=== PATIENT | male | born 1965 | race African-American/Black ===

== ENCOUNTER 2016-12-01 16:47 | Inpatient (IN) | payer OTHER ==
--- NOTE | ~2016-12-01 | CO ---
Unit #: [id number] #: [id number] Patient: SP BEVERLY [id number] [address] [place], [place] [address] [id number] I MR#: [id number] NAME: SP BEVERLY. ROOM: 237 Age: 51 Sex: M Admission Date: 12/01/2016 : 1965 Attending Physician: Francis Rdz M.D. Consultation Date: 12/02/2016 CONSULTATION REPORT Thanks for the consult. HISTORY OF PRESENT ILLNESS This is a 51-year-old black male, who has a history of type 2 diabetes mellitus, hypertension, hyperlipidemia, who presented to the emergency room for elevated blood sugars, increased polyuria, and polydipsia. On his arrival, his blood sugars were over 600 with pseudohyponatremia and creatinine of 1.5. He was started on insulin drip and admitted to the unit bed. Further evaluation showed A1c of 11.6. The patient reports he was taking 2 different insulins at home, probably Lantus and NovoLog, but it was switched to only different insulin recently to 10 units daily and also been taking metformin. PAST MEDICAL HISTORY Type 2 diabetes mellitus, hypertension, hyperlipidemia, morbid obesity. PAST SURGICAL HISTORY None. HOME MEDICATIONS Levemir, Lantus 10 units daily, metformin 1000 b.i.d., lisinopril 20 mg daily, hydrochlorothiazide 25 mg daily, aspirin daily, Lipitor 20 mg daily. ALLERGIES None. SOCIAL HISTORY Lives at home. Smokes 1 pack per day. Continues to use alcohol. No recreational or IV drug abuse. REVIEW OF SYSTEMS A 12-point review of system was completed. Please see HPI. Rest of the review of systems unremarkable. PHYSICAL EXAMINATION GENERAL: He is awake, alert, oriented to time, place, and person. VITAL SIGNS: He is afebrile. Temperature 98.1, blood pressure 99/69. HEENT: EOMI. Pupils equally reactive to light. NECK: Supple. No thyromegaly noted. CHEST: Good air entry. CVS: Regular rhythm. ABDOMEN: Obese. Bowel sounds positive. EXTREMITIES: No edema. Ulcers are noted. Unit #: [id number] #: [id number] Patient: SP BEVERLY ASSESSMENT 1. Type 2 diabetes mellitus, poorly controlled with an A1c of 11.6. 2. Morbid obesity. Weight is 146 kg. BMI of 48. 3. Hypertension. 4. Hyperlipidemia. PLAN We will discontinue insulin drip. The patient has started on Levemir 30 units subcu daily and NovoLog 10 units each meal with supplemental insulin as needed. Restart metformin 1000 mg b.i.d. Get nutrition consult. Continue to follow the patient for further management. Dictated by... Sheila Chauhan/julio TD: 12/03/2016 02:50 JOB #: [id number] CONSULTATION REPORT X Dimitrios Wei MD X CONSULTATION REPORT
--- NOTE | ~2016-12-01 | HP ---
Unit #: [id number] #: [id number] Patient: SP BEVERLY [id number] [address] [address] [id number] E MR#: [id number] NAME: SP BEVERLY. ROOM: Age: 51 Sex: M Admission Date: 12/01/2016 : 1965 Attending Physician: Moshe Quick M.D. Primary Care Physician: No Primary Care Physician HISTORY AND PHYSICAL CHIEF COMPLAINT Elevated blood sugar. HISTORY OF PRESENT ILLNESS The patient is a 51-year-old male with history of diabetes mellitus, noncompliant with his medication, brought to the emergency room complaining of elevated blood sugar. The patient stated that the patient was started recently on insulin by the PCP with 10 units of the basal insulin. The patient check the sugar and the sugar was running in 300s and thought that the patient might be in DKA. The patient was seen here in the hospital two years ago and was put on the Levemir. At that time, however, the patient stated that the patient is not taking Levemir and was on metformin for unknown reason. The patient also complains of increased urination for one week. The patient denies any fever, chills, nausea, vomiting, short of breath or chest pain. PAST MEDICAL HISTORY History of hypertension and diabetes. PAST SURGICAL HISTORY No surgical history. SOCIAL HISTORY The patient smokes one pack daily. Consumes alcohol on a rare occasion. FAMILY HISTORY Positive for diabetes. DRUG ALLERGIES No known drug allergies. HOME MEDICATIONS 1. He was started on Lantus 10 units recently. 2. Metformin 1,000 mg b.i.d. 3. Lisinopril. 4. Hydrochlorothiazide. 5. Aspirin. REVIEW OF SYMPTOMS A 14-point review of symptoms performed and only pertinent positive findings are described above, remaining are negative. PHYSICAL EXAMINATION GENERAL APPEARANCE: The patient is lying on a bed not in acute distress. Unit #: [id number] #: [id number] Patient: SP BEVERLY VITAL SIGNS: Temperature 98.4. Pulse 120. Respiratory rate 16. Blood pressure 145/74. Sating 99% at room air. HEENT: Head: Atraumatic, normocephalic. Pupils are equal, round and reactive to light and accommodation. Extraocular movements are intact. NECK: Supple. No JVD. LUNGS: Clear to auscultation bilaterally. No rhonchi. No wheezing. HEART: Regular rate and rhythm. ABDOMEN: Soft. Positive bowel sounds. EXTREMITIES: No cyanosis. No clubbing. NEUROLOGIC: Alert, awake, oriented. No gross focal motor deficit. DIAGNOSTIC STUDIES LABORATORY: Glucose 604, BUN 41, creatinine 1.5, sodium 126, potassium 4.6, chloride 92, bicarb 22, calcium 9.7, total protein 8, albumin 4.1, AST 17, ALT 58, alkaline phosphatase 77. Beta hydroxybutyrate 2.13. Anion gap 24. WBC 13.3, hemoglobin 14.8, hematocrit 45.3, platelets 290. UA shows more than 1,000 glucose. ASSESSMENT 1. DKA. 2. Acute kidney injury. 3. Hypertension. PLAN To admit the patient to the inpatient ICU. Continue with DKA protocol. The patient will have Endocrine consultation and taper the insulin drip. Repeat the labs again in the morning and further recommendations will follow as more lab results are available. Continue with IV fluids, normal saline, at 150 mL/hour. Dictated by Sheila Horan TD: 12/01/2016 19:02 JOB #: [id number] HISTORY AND PHYSICAL X X HISTORY AND PHYSICAL
--- NOTE | ~2016-12-01 | CR72 ---
[facility] A Service of [facility] RADIOLOGY TEXT RESULTS PATIENT: SP BEVERLY LOCATION: [place] [address] : [birth year] UNIT #: [id number] AGE: [address]: FARSHAD LUNSFORD MD SEX: M ORDER DR: [id number] [facility] [address] [facility]. [place], [place] [address] [id number] I MR#: [id number] Acc #: [id number] NAME: SP BEVERLY. : 1965 SEX: M STUDY DATE/TIME: 12/01/2016 20:33 UNIT: [facility] ROOM: [facility] STUDY DESCRIPTION: CR Chest Single View Portable Attending Physician: Farshad Lunsford M.D. Ordering Physician: Ed Doctor [id number] [facility] Primary Care Physician: No Primary Care Physician MEDICAL IMAGING REPORT This report is preliminary unless electronic signature is present EXAM Portable chest INDICATIONS Shortness of air with activity for the past week. PROCEDURE Frontal view chest COMPARISON 10/31/2016 FINDINGS Stable cardiomegaly. No dense consolidation, effusion or pneumothorax. IMPRESSION No active process Dictated by... Evan Wayne M.D. THIS IS AN ELECTRONICALLY VERIFIED REPORT Evan Wayne M.D. at 12/03/2016 7:00 AM MARLO/jennifer TD: 12/01/2016 23:21 JOB #: [id number] MEDICAL IMAGING REPORT COPY
--- NOTE | ~2016-12-01 | DS ---
Unit #: [id number] #: [id number] Patient: SP BEVERLY [id number] [address] [address] [id number] I MR#: [id number] NAME: SP BEVERLY. ROOM: 237 Age: 51 Sex: M Admission Date: 12/01/2016 : 1965 Discharge Date: 12/03/2016 Attending Physician: Marly Llamas M.D. Primary Care Physician: Sarai Primary Care Physician DISCHARGE SUMMARY ADDENDUM I discussed with Dr. Wei, who recommended that the patient's insulin dose should be increased to 30 units b.i.d. As the patient was taking Lantus at home, we should continue Lantus. He also advised to increase the patient's NovoLog to 15 units t.i.d. with each meal. Advised the patient to follow up as outpatient. The plan was discussed in detail with the patient, who showed complete understanding. Dictated by... Sheila Hernandez/miguel TD: 12/03/2016 16:14 JOB #: [id number] DISCHARGE SUMMARY X Marly Llamas MD X DISCHARGE SUMMARY
--- NOTE | ~2016-12-01 | A ---
[facility] Nutrition Therapy DATE: 12/03/16 Patient: SP BEVERLY Physician: BUBBA Address: [address] [place] [address] Room/Bed: [address] [place] [address], Zip: [place] [address] Admit Date: 12/01/16 Date of : [birth year] Height: 5 8 Weight: 321 146 NUTRITIONAL ASSESSMENT: REASON: PT SEEN FOR DX, ALSO CONSULT RECEIVED, ALSO HIGH BMI DOCUMENTATION PT IS 51 Y.O. MALE ADMITTED FOR DKA PMH: T2DM (DIAGNOSED 2 YEARS AGO), HTN, HLD Anthropometrics: 5'8", WT: 321# (146 KG), BMI: 48.8 Labs: GLU: 335, NA+:134, ALB: 3.4, A1c: 11.6 (REFLECTS POOR GLUCOSE MANAGEMENT) Meds: LEVEMIR, LIPITOR, GLUCOPHAGE, NOVOLOG, NACL I/O & Bowel function: 2568/4100 Skin Integrity: NO KNOWN SKIN ISSUES Estimated Nutrition Needs: N/A Assessment: CHART REVIEWED AND EVENTS NOTED. PT SEEN FOR DX, ALSO CONSULT RECEIVED. PT SITTING IN CHAIR AT TIME OF VISIT REPORTING GOOD PO INTAKE AND APPETITE. RD PROVIDED WRITTEN AND VERBAL CC + WEIGHT LOSS DIET EDUCATION. RD PROVIDED LIST OF FOODS TO AVOID/FOODS TO EAT MORE OFTEN. RD EMPHASIZED IMPORTANCE OF PORTION CONTROL AND LIMIT SUGAR-SWEETENED BEVERAGES. PT REPORTS LOSING ~30# INTENTIONALLY SINCE SEPTEMBER 2016. PT VERBALIZED UNDERSTANDING OF THE TOPIC. PT REPORTED NO DIET QUESTION AT THIS TIME. RD TO REMAIN AVAILABLE. Dx: IMPAIRED GLYCEMIC CONTROL R/T PMH, DX AEB ELEVATED BLOOD SUGAR LEVELS, ELEVATED A1c. Intervention: 1. CC DIET (60 GRAMS CARBS PER MEAL) 2. RD CONSULT Monitoring, Evaluation and Goals: 1. WEIGHTS; PROMOTE GRADUAL WEIGHT LOSS TOWARDS HEALTHY BMI (19.0-25.0) OR +/-10%IBW 2. LABS; WNL: GLU MONITOR: -WEIGHTS -EDUCATION NEEDS Recommendations: 1. RECOMMEND TO ADD HH TO CURRENT DIET ORDER ABOVE TO PROMOTE GRADUAL WEIGHT LOSS TOWARDS [facility] Nutrition Therapy DATE: 12/03/16 Patient: SP BEVERLY Physician: BUBBA Address: [address] [place] [address] Room/Bed: [address] [place] [address], Zip: [place] [address] Admit Date: 12/01/16 Date of : [birth year] Height: 5 8 Weight: 321 146 HEALTHY BMI (19.0-25.0) OR +/-10%IBW 2. ENCOURAGE COMPLIANCE OF CURRENT DIET ORDER 3. RE-CONSULT RD IF FURTHER DIET EDUCATION REQUESTED RD WILL F/U PER PROTOCOL PT IS MILDLY COMPROMISED Respectfully, JANET VARNER MS, RD, LD [facility] [place] [facility] cc: client file
--- NOTE | ~2016-12-01 | EKG ---
PATIENT: SP BEVERLY UNIT #: [id number] Ventricular Rate: 102 BPM Atrial Rate: 102 BPM P-R Interval: 144 ms QRS Duration: 82 ms Q-T Interval: 360 ms QTC Calculation(Bezet): 469 ms P [place]: 34 degrees Calculated R [place]: -3 degrees Calculated T [place]: 5 degrees Diagnosis Line: Sinus tachycardia Diagnosis Line: Otherwise normal ECG Diagnosis Line: When compared with ECG of 31-OCT-2016 09:50, Diagnosis Line: No significant change was found Diagnosis Line: Confirmed by DONNA TURNER MD ([id number]) on Diagnosis Line: 12/02/2016 10:51:03 PM INTERPRETING MD: CORIN
--- NOTE | ~2016-12-01 | DS ---
Unit #: [id number] #: [id number] Patient: SP BEVERLY [id number] [address] [address] [id number] I MR#: [id number] NAME: SP BEVERLY. ROOM: 237 Age: 51 Sex: M Admission Date: 12/01/2016 : 1965 Discharge Date: 12/03/2016 Attending Physician: Marly Llamas M.D. Primary Care Physician: No Primary Care Physician DISCHARGE SUMMARY DIAGNOSIS ON ADMISSION Diabetic ketoacidosis. DIAGNOSES ON DISCHARGE 1. Type 2 diabetes mellitus, uncontrolled. 2. Hyperlipidemia. 3. Hypertension. CONSULTATION Dr. Wei in endocrinology consultation. DIAGNOSTIC STUDIES LABORATORY: The patient's creatinine is 0.9, sodium 134, potassium 4.3. Hemoglobin A1c was 11.6. WBC 10.5, hemoglobin 13.3, platelet count 220,000. Blood culture did not reveal any growth so far. IMAGING: Chest x-ray did not reveal any acute finding. HOSPITAL COURSE A 51-year-old male was admitted to [facility] with diabetic ketoacidosis. Details are as per admission H and P. The patient was seen, was admitted in ICU, and treated with DKA protocol. The patient's DKA has resolved and he is transferred to medical floor. The patient was seen by Dr. Wei in consultation who has recommended patient to be on Levemir. He will follow up with patient on outpatient basis. Today patient is comfortable, is not in any acute distress. He wants to go home. PHYSICAL EXAMINATION VITAL SIGNS: Reveal temperature of 98.1, pulse 91 per minute, respiratory rate is 16 per minute, blood pressure is 140/78. HEENT: Revealed no conjunctival congestion. Sclerae is nonicteric. NECK: Supple. Trachea is central. RESPIRATORY: Revealed breath sounds equal bilaterally. There are no wheezes or crackles. HEART: Regular rate and rhythm. S1, S2. RECOMMENDATIONS ON DISCHARGE Condition is stable. Activity is as tolerated. MEDICATIONS 1. Levemir 30 units subcutaneous every morning. Unit #: [id number] #: [id number] Patient: SP BEVERLY 2. Lisinopril 20 mg p.o. daily. 3. Lipitor 20 mg nightly. 4. Metformin 1000 mg p.o. b.i.d. 5. Tylenol 650 mg p.o. q.6 hours p.r.n. pain. 6. NovoLog 10 units subcutaneous t.i.d. with meals. 7. Enteric coated aspirin 81 mg p.o. daily. FOLLOWUP 1. The patient is advised to follow up with primary care physician in one week and with Dr. Wei as recommended. 2. The patient is advised to have Accu-Cheks a.c. and nightly and call primary care physician if less than 80 or greater than 350. 3. The plan was discussed in detail with patient who showed complete understanding. Dictated by... Sheila Hernandez/ana TD: 12/03/2016 15:55 JOB #: [id number] DISCHARGE SUMMARY X Marly Llamas MD X DISCHARGE SUMMARY
[2016-12-01 16:12] LABS: URINE SOURCE CLEAN CATCH
[2016-12-01 16:14] LABS: BASOPHIL% 0.3 % (0-2.5); EOSINOPHIL% 0.1 % (0.0-7.0); HEMATOCRIT 45.3 % (38.0-50.0); HEMOGLOBIN 14.8 gm/dL (13.0-16.0); LYMPHOCYTE# 3.9 X10e3 (1.0-3.5); LYMPHOCYTE% 29.6 % (17.0-45.0); MEAN CELL VOLUME 79.3 FL (83-96); MEAN CORPUSCULAR HGB CONC 32.8 g/dL (30-36); MEAN PLATELET VOLUME 8.9 FL (6.5-11.5); MONOCYTE% 7.3 % (3.0-12.0); NEUTROPHIL# 8.3 X10e3 (1.5-7.1); NEUTROPHIL% 62.7 % (40-75); PLATELET COUNT 290 X10e3 (140-420); RED BLOOD COUNT 5.71 X10e (3.90-5.60); RED CELL DISTRIBUTION WIDTH 13.7 % (11.0-15.5); WHITE BLOOD COUNT 13.3 X10e3 (4.0-10.5)
[2016-12-01 16:18] LABS: DIFF IND NO
[2016-12-01 16:25] LABS: URINE APPEARANCE CLEAR; URINE BILIRUBIN NEG (NEG); URINE BLOOD NEG (NEG); URINE COLOR YELLOW; URINE GLUCOSE >1000 MG/DL (NEG); URINE KETONE 1+ (NEG); URINE LEUKOCYTE ESTERASE NEG (NEG); URINE NITRATE NEG (NEG); URINE PROTEIN NEG (NEG); URINE SPECIFIC GRAVITY 1.033 (1.003-1.035); URINE UROBILINOGEN 0.2 MG/DL (NEG)
[2016-12-01 16:30] LABS: CULTURE INDICATED? NO
[2016-12-01 16:35] LABS: ALBUMIN SERUM 4.1 g/dL (3.5-5.0); ALKALINE PHOSPHATASE 77 U/L (32-92); ALT (SGPT) 58 U/L (10-40); AST (SGOT) 17 U/L (10-42); BETA HYDROXYBUTYRATE 2.13 MMOL/L (0.02-0.27); BILIRUBIN, DIRECT 0.1 mg/dL (0.0-0.2); BILIRUBIN,INDIRECT 0.9 mg/dL (0.0-0.9); BLOOD UREA NITROGEN 41 mg/dL (9-23); BUN/CREATININE RATIO 27.33; CALCIUM SERUM 9.7 mg/dL (8.4-10.2); CARBON DIOXIDE 22 mmol/L (22-31); CHLORIDE 92 mmol/L (100-111); CREATININE SERUM 1.5 mg/dL (0.6-1.4); GLOM FILT RATE Estimated ABOVE60 mL/min (>60); POTASSIUM 4.6 mmol/L (3.5-5.1); SODIUM 126 mmol/L (135-145)
[2016-12-01 16:37] LABS: GLUCOSE FASTING 604 mg/dL (70-110)
[~2016-12-01 16:47] MED LIST: ERYTHROMYC3.5 GM OPT OD; HYDROCHLOROTH12.5 M1 PO; HYDROCODONE-APA1 T55 PO; LEVEMIR FL100 UNIT/1 SQ; LIPITOR20 MG PO; LISINOPRIL10 MG PO; NO MEDICATIONS; NOVOLOG100 U/ML SUBQ
[2016-12-01] MEDS ORDERED: LANTUS100 U/ML SUBQ (18:37)
[2016-12-01] MEDS ORDERED: LIPITOR20 MG PO (18:37)
[2016-12-01] MEDS ORDERED: LISINOPRIL10 MG PO (18:37)
[2016-12-01 21:17] LABS: AMYLASE 52 U/L (0-46); BLOOD UREA NITROGEN 31 mg/dL (9-23); BUN/CREATININE RATIO 25.83; CALCIUM SERUM 8.5 mg/dL (8.4-10.2); CARBON DIOXIDE 22 mmol/L (22-31); CHLORIDE 105 mmol/L (100-111); CREATININE SERUM 1.2 mg/dL (0.6-1.4); GLOM FILT RATE Estimated ABOVE60 mL/min (>60); GLUCOSE FASTING 308 mg/dL (70-110); LIPASE 87 U/L (22-51); SODIUM 133 mmol/L (135-145)
[2016-12-01] MEDS ORDERED: HYDROCHLOROTHIA25 MG PO (22:16)
[2016-12-01] MEDS ORDERED: ASPIRIN EC81 M1 PO (22:17)
[2016-12-01] MEDS ORDERED: LANTUS100 U/ML (22:18)
[2016-12-01] MEDS ORDERED: METFORMIN HCL1000 M1 PO (22:18)
[2016-12-02 05:29] LABS: BASOPHIL% 0.2 % (0-2.5); EOSINOPHIL% 0.2 % (0.0-7.0); HEMATOCRIT 39.4 % (38.0-50.0); HEMOGLOBIN 13.6 gm/dL (13.0-16.0); LYMPHOCYTE# 5.5 X10e3 (1.0-3.5); LYMPHOCYTE% 44.5 % (17.0-45.0); MEAN CELL VOLUME 77.7 FL (83-96); MEAN CORPUSCULAR HEMOGLOBIN 26.8 PG (28-34); MEAN CORPUSCULAR HGB CONC 34.4 g/dL (30-36); MEAN PLATELET VOLUME 8.6 FL (6.5-11.5); MONOCYTE% 8.3 % (3.0-12.0); NEUTROPHIL# 5.8 X10e3 (1.5-7.1); NEUTROPHIL% 46.8 % (40-75); PLATELET COUNT 241 X10e3 (140-420); RED BLOOD COUNT 5.07 X10e (3.90-5.60); RED CELL DISTRIBUTION WIDTH 13.9 % (11.0-15.5); WHITE BLOOD COUNT 12.3 X10e3 (4.0-10.5)
[2016-12-02 05:31] LABS: DIFF IND NO
[2016-12-02 06:26] LABS: ALBUMIN SERUM 3.4 g/dL (3.5-5.0); ALKALINE PHOSPHATASE 60 U/L (32-92); ALT (SGPT) 24 U/L (10-40); AST (SGOT) 14 U/L (10-42); BILIRUBIN,TOTAL 0.7 mg/dL (0.2-2.0); BLOOD UREA NITROGEN 24 mg/dL (9-23); BUN/CREATININE RATIO 26.66; CALCIUM SERUM 8.6 mg/dL (8.4-10.2); CARBON DIOXIDE 20 mmol/L (22-31); CHLORIDE 101 mmol/L (100-111); CREATININE SERUM 0.9 mg/dL (0.6-1.4); GLOM FILT RATE Estimated ABOVE60 mL/min (>60); GLUCOSE FASTING 134 mg/dL (70-110); PHOSPHOROUS 2.6 mg/dL (2.5-4.6); POTASSIUM 3.4 mmol/L (3.5-5.1); SODIUM 133 mmol/L (135-145)
[2016-12-03 05:50] LABS: BASOPHIL% 0.3 % (0-2.5); EOSINOPHIL% 0.3 % (0.0-7.0); HEMATOCRIT 38.3 % (38.0-50.0); HEMOGLOBIN 13.3 gm/dL (13.0-16.0); LYMPHOCYTE# 4.8 X10e3 (1.0-3.5); MEAN CORPUSCULAR HGB CONC 34.7 g/dL (30-36); MEAN PLATELET VOLUME 8.4 FL (6.5-11.5); MONOCYTE# 0.9 X10e3 (0-1.0); MONOCYTE% 8.9 % (3.0-12.0); NEUTROPHIL# 4.7 X10e3 (1.5-7.1); NEUTROPHIL% 44.5 % (40-75); PLATELET COUNT 220 X10e3 (140-420); RED BLOOD COUNT 4.91 X10e (3.90-5.60); RED CELL DISTRIBUTION WIDTH 13.8 % (11.0-15.5); WHITE BLOOD COUNT 10.5 X10e3 (4.0-10.5)
[2016-12-03 05:58] LABS: DIFF IND NO
[2016-12-03 06:24] LABS: BLOOD UREA NITROGEN 15 mg/dL (9-23); BUN/CREATININE RATIO 16.66; CALCIUM SERUM 8.6 mg/dL (8.4-10.2); CARBON DIOXIDE 21 mmol/L (22-31); CHLORIDE 104 mmol/L (100-111); CREATININE SERUM 0.9 mg/dL (0.6-1.4); GLOM FILT RATE Estimated ABOVE60 mL/min (>60); GLUCOSE FASTING 335 mg/dL (70-110); POTASSIUM 4.3 mmol/L (3.5-5.1); SODIUM 134 mmol/L (135-145)
[2016-12-03] MEDS ORDERED: NOVOLOG100 U/ML SUBQ (14:36)
[2016-12-03] MEDS ORDERED: ACETAMINOPHEN PO (14:37)
== END 2016-12-03 15:35 | disposition home or self-care (01) | DRG 638 ==
LOC: CED 16:47 → CEDOF 18:34 → CICCU3 22:53 → C2A 12-02 18:56
PROVIDERS: Emergency Medicine; Internal Medicine
DX: E13.10 Other specified diabetes mellitus with ketoacidosis without coma (principal); N17.9 Acute kidney failure, unspecified; Z68.42 Body mass index [BMI] 45.0-49.9, adult; Z79.4 Long term (current) use of insulin; F17.210 Nicotine dependence, cigarettes, uncomplicated; I10 Essential (primary) hypertension; Z79.82 Long term (current) use of aspirin; E66.01 Morbid (severe) obesity due to excess calories
CPT/HCPCS: 36415; 71010; 80048; 80053; 80076; 81003; 82010; 82150; 82947; 83036; 83690; 83735; 84100; 85025; 87040; 93005; 96360; 96361; 99285; J1650; J1815